=== PATIENT | female | born 1985 | race Hispanic/Latino ===

== ENCOUNTER 2021-09-06 11:29 | Inpatient (IN) | payer OTHER, SELFPAY ==
[2021-09-06] MEDS ORDERED: Lidocaine 1% (PF) 30 ML VIAL SC PRN (12:16)
[2021-09-06] MEDS ORDERED: Promethazine HCl 25 MG/ML VIAL IM PRN (12:16)
[2021-09-06] MEDS ORDERED: Ondansetron PF 4 MG/2 ML Vial IVP PRN ×2 (12:16→18:27)
[2021-09-06] MEDS ORDERED: Ibuprofen 800 MG TAB PO PRN (12:16)
[2021-09-06] MEDS ORDERED: hydrALAZINE 20 MG/ML VIAL SLOW IVP PRN ×2 (12:16→18:27)
[2021-09-06] MEDS ORDERED: Butorphanol Tartrate 1 MG/ML VIAL SLOW IVP PRN (12:16)
[2021-09-06] MEDS ORDERED: HYDROcodone/Acetaminophen 5/325 mg Tablet PO PRN ×3 (12:16→18:27)
[2021-09-06] MEDS ORDERED: Lactated Ringer's 1,000 ML IV SCH ×2 (12:30)
[2021-09-06 12:45] LABS: Hemoglobin 13.1 g/dL (12.0-15.5); Mean Corpuscular HGB CONC 33.9 g/dL (32.0-36.0); Mean Corpuscular Hemoglobin 28.9 pg (27.0-33.0); Mean Platelet Volume 11.6 fl (7.4-10.4); Platelet Count 237 10x3/uL (150-450); RBC Distribution Width 13.3 % (11.5-14.5); Red Blood Cell (RBC) Count 4.54 10x6/uL (3.90-5.03); White Blood Cell (WBC) Count 9.2 10x3/uL (3.5-10.5)
[2021-09-06] MEDS ORDERED: NS w/ Oxytocin 30 units 500 ML ONE (12:56)
[2021-09-06] MEDS ORDERED: Lidocaine 1% (PF) 30 ML VIAL ONE (12:56)
[2021-09-06 13:15] LABS: Hep B Surf Ag Non-Reactive S/CO (NonReactive); Syphilis Antibody Nonreactive (Nonreactive); Syphilis Antibody Index 0.05 S/CO (<1.00 Non-Reactive)
[2021-09-06 13:19] LABS: SARS-CoV-2 NAA Rapid Test Not Detected (NotDetected)
[2021-09-06 13:27] LABS: HBSAg Index 0.17 S/CO (0-0.99)
[2021-09-06] MEDS: NS w/ Oxytocin 30 units 500 ML IV SCH ×2 (14:25→16:08)
[2021-09-06 15:44] VITALS: BMI 35.3
[2021-09-06] MEDS ORDERED: Boostrix 0.5 ML (Tdap) VIAL IM ONE (18:27)
[2021-09-06] MEDS ORDERED: Bisacodyl 10 MG SUPP PR PRN (18:27)
[2021-09-06] MEDS ORDERED: Milk Of Magnesia 30 ML UDCUP PO PRN (18:27)
[2021-09-06] MEDS ORDERED: NS w/ Oxytocin 30 units 500 ML IV PRN (18:27)
[2021-09-06] MEDS ORDERED: Methylergonovine 0.2 MG/ML VIAL IM PRN (18:27)
[2021-09-06] MEDS ORDERED: Misoprostol 200 MCG TAB VAG PRN (18:27)
[2021-09-06] MEDS ORDERED: Benzocaine-Menthol 82.5 ML CAN TOP PRN (18:27)
[2021-09-06] MEDS: Docusate Calcium (SURFAK) 240 MG CAP PO SCH (22:05)
[2021-09-06] MEDS: Ibuprofen 800 MG TAB PO SCH (22:05)
[2021-09-07] MEDS: Ibuprofen 800 MG TAB PO SCH ×2 (05:52→14:12)
[2021-09-07] MEDS ORDERED: Ferrous Sulfate 325 MG TAB PO SCH (08:00)
[2021-09-07] MEDS: Docusate Calcium (SURFAK) 240 MG CAP PO SCH (08:41)
[2021-09-07 16:49] VITALS: BP 107/58; TEMP 98.1
== END 2021-09-07 18:45 | disposition home or self-care (01) | DRG 807 ==
LOC: CSHLD/OP 11:29 → CSHLD 14:06 → CSHPP 17:55
PROVIDERS: ADMIT Student in an Organized Health Care Education/Training Program; ATTEND Student in an Organized Health Care Education/Training Program
PROC: 10E0XZZ Delivery of Products of Conception, External Approach (ICD-10-PCS; principal; 2021-09-06)
DX: O99.02 Anemia complicating childbirth (principal); Z37.0 Single live birth; Z20.822 Contact with and (suspected) exposure to COVID-19; D64.9 Anemia, unspecified; Z3A.39 39 weeks gestation of pregnancy; O76 Abnormality in fetal heart rate and rhythm complicating labor and delivery; O77.0 Labor and delivery complicated by meconium in amniotic fluid
CPT/HCPCS: 36415; 85027; 86780; 86850; 86900; 86901; 87340; 99285; J2001; J2590; U0002